=== PATIENT | male | born 1990 | race Two or more races ===

== ENCOUNTER 2022-12-23 13:04 | Emergency (ER) | payer BC, OTHER ==
[~2022-12-23] VITALS: Ht 175.3 cm; Wt 70.0 kg
[2022-12-23 15:36] VITALS: RESP 18; O2SAT 98
[2022-12-23 15:37] VITALS: BP 112/60; PULSE 81; RESP 18; TEMP 98.3; O2SAT 98
== END 2022-12-23 15:45 | disposition home or self-care (01) ==
LOC: ER 13:04
DX: A15.9 Respiratory tuberculosis unspecified (principal)
CPT/HCPCS: 71046